=== PATIENT | female | born 1980 | race Caucasian/White ===

== ENCOUNTER 2016-10-30 00:40 | Emergency (ER) | payer MEDICAID ==
[~2016-10-30] VITALS: Ht 177.8 cm; Wt 109.5 kg
[2016-10-30 00:50] VITALS: Ht 177.8 cm; Wt 109.5 kg
--- NOTE | 2016-10-30 01:48 | ERA ---
ER Documentation Chief Complaint Date/Time DATE: 10/30/16 TIME: 01:48 Chief Complaint mid abdominal pain x 4 hours HPI The patient is a 36-year-old, presenting to the ER because of epigastric and topical abdominal pain after eating fatty food around 9 PM. She denies similar symptoms previously, denies fever, chills, neck pain, chest pain, dyspnea. She denies dysuria, diarrhea, constipation. She does not smoke nor drink Past medical history: None Past surgical history: 3 ROS All systems reviewed and are negative except as per history of present illness. Medications Home Meds Active Scripts Ibuprofen* (Motrin*) 600 Mg Tab, 600 MG PO Q6, #30 TAB Prov:JANUSZ FREED MD 10/30/16 Sulfamethoxazole/Trimethoprim* (Bactrim Ds* Tablet) 1 Each Tablet, 1 TAB PO BID , #14 TAB Prov:JANUSZ FREED MD 10/30/16 Reported Medications Omeprazole* (Omeprazole*) 40 Mg Capsule.dr, 40 MG PO DAILY, #30 CAP 10/30/16 Allergies Allergies: Coded Allergies: No Known Drug Allergies (Verified Allergy, Unknown, 10/30/16) PMhx/Soc History of Surgery: Yes () Anesthesia Reaction: No Hx Neurological Disorder: No Hx Respiratory Disorders: No Hx Cardiac Disorders: No Hx Psychiatric Problems: No Hx Miscellaneous Medical Probl: No Hx Alcohol Use: No Hx Substance Use: No Hx Tobacco Use: No Smoking Status: Never smoker Physical Exam Vitals Vital Signs Date Time Temp Pulse Resp B/P Pulse Ox O2 Delivery O2 Flow Rate FiO2 10/30/16 02:46 66 14 111/74 98 Room Air 10/30/16 00:50 97.7 76 20 112/72 98 Physical Exam Const: No acute distress. Head: Atraumatic. Eyes: Normal Conjunctiva. ENT: Normal External Ears, Nose and Mouth. Neck: Full range of motion. No meningismus. Resp: Clear to auscultation bilaterally. Cardio: Regular rate and rhythm. Abd: Soft, non distended, normal bowel sounds, mild epigastric and right upper quadrant tenderness, no rigidity, rebound, CVA tenderness Skin: No petechiae or rashes. Back: No midline or flank tenderness. Ext: No cyanosis, or edema. Neur: Awake and alert. No focal deficit Psych: Normal Mood and Affect. Result Diagram: 10/30/16 02510/30/16 0250 Results 24 hrs Laboratory Tests Test 10/30/16 02:49 10/30/16 02:50 Bedside Urine pH (LAB) 7.0 Bedside Urine Protein (LAB) Negative Bedside Urine Glucose (UA) Negative Bedside Urine Ketones (LAB) Negative Bedside Urine Blood Trace-intact Bedside Urine Nitrite (LAB) Negative Bedside Urine Leukocyte Esterase (L 2+ White Blood Count 8.410^3/ul Red Blood Count 4.6010^6/ul Hemoglobin 13.4g/dl Hematocrit 40.5% Mean Corpuscular Volume 88.0fl Mean Corpuscular Hemoglobin 29.1pg Mean Corpuscular Hemoglobin Concent 33.1g/dl Red Cell Distribution Width 12.9% Platelet Count 23426^3/UL Mean Platelet Volume 9.6fl Neutrophils % 67.2% Lymphocytes % 20.0% Monocytes % 7.8% Eosinophils % 3.8% Basophils % 0.7% Nucleated Red Blood Cells % 0.0/100WBC Neutrophils # 5.610^3/ul Lymphocytes # 1.710^3/ul Monocytes # 0.710^3/ul Eosinophils # 0.310^3/ul Basophils # 0.110^3/ul Nucleated Red Blood Cells # 0.010^3/ul Sodium Level 141mmol/L Potassium Level 3.8mmol/L Chloride Level 105mmol/L Carbon Dioxide Level 26mmol/L Anion Gap 14 Blood Urea Nitrogen 12mg/dl Creatinine 0.69mg/dl Glucose Level 101mg/dl Calcium Level 9.1mg/dl Total Bilirubin 0.2mg/dl Direct Bilirubin 0.00mg/dl Indirect Bilirubin 0.2mg/dl Aspartate Amino Transf (AST/SGOT) 19IU/L Alanine Aminotransferase (ALT/SGPT) 17IU/L Alkaline Phosphatase 81IU/L Total Protein 7.7g/dl Albumin 4.8g/dl Globulin 2.90g/dl Albumin/Globulin Ratio 1.65 Lipase 57U/L Current Medications Medications (Trade) Dose Ordered Sig/[place] Route PRN Reason Start Time Stop Time Status Last Admin Dose Admin Sodium Chloride (NS) 1,000 ml @ 1,000 mls/hr Q1H STAT IV 10/30/16 02:03 10/30/16 03:02 DC 10/30/16 02:45 Morphine Sulfate (morphine) 2 mg ONCE STAT IV 10/30/16 02:03 10/30/16 02:04 DC 10/30/16 02:45 Ondansetron HCl (Zofran Inj) 4 mg ONCE STAT IV 10/30/16 02:03 10/30/16 02:04 DC 10/30/16 02:45 Procedures/MDM [place] [id number] Radiology Main Line: [phone] DIAGNOSTIC IMAGING REPORT Patient: MASSIEL REYES : 1980 Age: 36 Sex: F MR #: [id number] DOS: 10/30/16 0203 Ordering MD: JANUSZ FREED MD Location: E/R Room/Bed: PROCEDURE: US Abdomen (right upper quadrant). CLINICAL INDICATION: Pain TECHNIQUE: Multiple real-time longitudinal and transverse images of the right upper quadrant of the abdomen were acquired utilizing a curved array transducer. Images were reviewed on a high-resolution PACS workstation. COMPARISON: None FINDINGS: The liver is enlarged at 19.1 cm and mildly echogenic without focal mass. Multiple mobile calcified gallstones are present within the gallbladder. Positive sonographic Mariee's sign is present. The gallbladder is otherwise normal. There is no pericholecystic fluid or gallbladder wall thickening. No intra or extrahepatic biliary dilatation is seen. The common bile duct measures 3.2 mm in maximal dimension. The visualized portions of the pancreas are unremarkable with obscuration of the tail of the pancreas. No free fluid is identified. . The right kidney measures 12.5 cm in length. There is normal echogenicity within the right kidney. There is no perinephric fluid collection. No hydronephrosis, mass, or calculus is seen. IMPRESSION: 1. Enlarged fatty liver. 2. Cholelithiasis. Positive sonographic Mariee's sign. However, there is no other evidence for acute cholecystitis such as wall thickening or pericholecystic fluid. 3. No biliary dilatation. 4. Otherwise negative. RPTAT: [facility] .Janusz Narayanan MD, MD Date Time Electronically viewed and signed by .Janusz Narayanan MD, on 10/30/2016 02:43 .K/ CC: JANUSZ FREED MD MEDICAL MAKING DECISION: The patient is a 36-year-old female, presenting with acute renal colic, acute cystitis. She was treated with 1 L normal saline for clinical dehydration, morphine 2 mg IV for pain, Zofran 4 mg IV for nausea with good response The differential diagnoses considered include but are not limited to cholelithiasis, cholecystitis, cystitis, pancreatitis, hepatitis, gastritis, peptic ulcer disease, gastric ulcer, appendicitis, diverticulitis, cholangitis, choledocholithiasis, partial small bowel obstruction. Departure Diagnosis: Primary Impression: Biliary colic Additional Impression: UTI (urinary tract infection) Condition: Good Comments She was discharged with Bactrim DS and Motrin I discussed the findings with the patient. I advised the patient to follow-up with the primary physician in about 1-2 days for referral to see general surgeon for elective cholecystectomy, sooner if needed and return if any concern. JANUSZ FREED MD Oct 30, 2016 01:48
[2016-10-30] MEDS ORDERED: ONDANSETRON 4 MG INJ IV STA (02:03)
[2016-10-30] MEDS ORDERED: morphine 2 MG INJ IV STA (02:03)
[2016-10-30] MEDS ORDERED: SOD CHLORIDE 0.9% 1,000 ML IV STA (02:03)
--- NOTE | 2016-10-30 02:43 | RADRPT ---
PROCEDURE: US Abdomen (right upper quadrant). CLINICAL INDICATION: Pain TECHNIQUE: Multiple real-time longitudinal and transverse images of the right upper quadrant of th e abdomen were acquired utilizing a curved array transducer. Images were reviewed on a high-resoluti on PACS workstation. COMPARISON: None FINDINGS: The liver is enlarged at 19.1 cm and mildly echogenic without focal mass. Multiple mobile calcified gallstones are present within the gallbladder. Positive sonographic Mariee's sign is present. The gallbladder is otherwise normal. There is no pericholecystic fluid or gallbladder wall thickening. No intra or extrahepatic biliary dilatation is seen. The common bile duct measures 3.2 mm in maxim al dimension. The visualized portions of the pancreas are unremarkable with obscuration of the tail of the pancreas. No free fluid is identified. . The right kidney measures 12.5 cm in length. There is normal echogenicity within the right kidney. There is no perinephric fluid collection. No hydronephrosis, mass, or calculus is seen. IMPRESSION: 1. Enlarged fatty liver. 2. Cholelithiasis. Positive sonographic Mariee's sign. However, there is no other evidence for ac [place] cholecystitis such as wall thickening or pericholecystic fluid. 3. No biliary dilatation. 4. Otherwise negative. RPTAT: [facility] .Janusz Narayanan MD, MD Date Time Electronically viewed and signed by .Janusz Narayanan MD, MD on 10/30/2016 02:43 .K/
[2016-10-30 02:45] LABS: URINE BLOOD (Dip) POC Trace-intact (NEGATIVE)
[2016-10-30] MEDS ORDERED: OMEP40CA6 PO (03:24)
[2016-10-30 03:59] LABS: ALBUMIN 4.8 g/dl (3.3-4.9); ALBUMIN/GLOBULIN RATIO 1.65; BILIRUBIN,INDIRECT 0.2 mg/dl (0-1.1); BILIRUBIN,TOTAL 0.2 mg/dl (0.2-1.3); CALCIUM 9.1 mg/dl (8.4-10.2); CREATININE 0.69 mg/dl (0.44-1.00); POTASSIUM 3.8 mmol/L (3.5-5.1); TOTAL PROTEIN 7.7 g/dl (6.1-8.1)
[2016-10-30 04:10] LABS: BASOPHIL # 0.1 10^3/ul (0.0-0.1); BASOPHILS % 0.7 % (0.0-2.0); EOSINOPHILS # 0.3 10^3/ul (0.0-0.5); EOSINOPHILS % 3.8 % (0.0-7.0); HEMATOCRIT 40.5 % (37.0-47.0); HEMOGLOBIN 13.4 g/dl (12.0-16.0); LYMPHOCYTES # 1.7 10^3/ul (0.8-2.9); MEAN CORPUSCULAR HEMOGLOBIN 29.1 pg (29.0-33.0); MEAN CORPUSCULAR HGB CONC 33.1 g/dl (32.0-37.0); MEAN PLATELET VOLUME 9.6 fl (7.4-10.4); MONOCYTE # 0.7 10^3/ul (0.3-0.9); MONOCYTES % 7.8 % (0.0-11.0); NEUTROPHIL # 5.6 10^3/ul (1.6-7.5); NEUTROPHILS % 67.2 % (39.0-77.0); PLATELET COUNT 358 10^3/UL (140-415); RED CELL DISTRIBUTION WIDTH 12.9 % (11.5-14.5); WHITE BLOOD COUNT 8.4 10^3/ul (4.8-10.8)
[2016-10-30 04:13] LABS: ADD SCAN DIFF NO
[2016-10-30] MEDS ORDERED: IBUP-1542 PO (04:45)
[2016-10-30] MEDS ORDERED: SULF1TAB31 PO (04:45)
[2016-10-30 05:00] VITALS: BP 102/70; PULSE 60; RESP 11
== END 2016-10-30 05:19 | disposition home or self-care (01) ==
LOC: E/R 00:40
DX: K80.50 Calculus of bile duct without cholangitis or cholecystitis without obstruction (principal); R40.2252 Coma scale, best verbal response, oriented, at arrival to emergency department; N39.0 Urinary tract infection, site not specified; R40.2142 Coma scale, eyes open, spontaneous, at arrival to emergency department; R40.2362 Coma scale, best motor response, obeys commands, at arrival to emergency department
CPT/HCPCS: 36415; 76705; 80053; 81003; 83690; 85025; 96374; 96375; J2270; J2405; J7030; Z7502; Z7610